=== PATIENT | female | born 1995 | race Caucasian/White ===

== ENCOUNTER → 2023-01-12 | Outpatient (CLI) | payer OTHER ==
--- NOTE | 2023-01-13 06:58 | MR ---
EXAMINATION TYPE: MR pelvis wo/w con DATE OF EXAM: 01/12/2023 COMPARISON: None HISTORY: Abnormal US. Hydrosalpinx. CONTRAST: Standard multiplanar, multisequence MRI departmental protocol images were obtained without contrast a nd with 10 mL intravenous Gadavist gadolinium contrast. The uterus is anteverted. Uterus has normal size and contour. Bladder distends smoothly. There is mod erate free fluid in the cul-de-sac. Left ovary has normal size with multiple small follicular cysts. The right ovary is enlarged with a dominant cyst that measures 4 cm. There is elongated fluid structu re in the right adnexal region consistent with hydrosalpinx that measures up to 9 mm in diameter. No evidence of left-sided hydrosalpinx. IMPRESSION: Right-sided hydrosalpinx with large right ovarian cyst. Mild free fluid in the pelvis. Normal uterus. Normal left ovary.
== END | disposition home or self-care (01) ==
LOC: RADMRIMAIN 21:15
PROVIDERS: ATTEND Obstetrics & Gynecology Reproductive Endocrinology
DX: N70.11 Chronic salpingitis (principal); N83.201 Unspecified ovarian cyst, right side
CPT/HCPCS: 72197; A9585

== ENCOUNTER → 2023-05-05 | Outpatient (CLI) | payer OTHER ==
[2023-05-05 13:25] LABS: Basophils # (A) 0.08 X 10*3/uL (0.00-0.10); Eosinophils % (A) 1.3 %; HCT 43.1 % (37.2-46.3); HGB 14.1 d/dL (12.0-15.0); Lymphocytes # (A) 2.51 X 10*3/uL (0.90-5.00); Lymphocytes % (A) 32.4 %; MCH 29.9 pg (27.0-32.0); MCHC 32.7 d/dL (32.0-37.0); MCV 91.3 FL (80.0-97.0); Monocytes # (A) 0.54 X 10*3/uL (0.20-1.00); NRBC Per 100 WBC 0 X 10*3/uL (0.00-0.01); Neutrophils # (A) 4.48 X 10*3/uL (1.80-7.70); Neutrophils % (A) 57.9 %; Platelet Count 272 X 10*3/uL (140-440); RBC 4.72 X 10*6/uL (4.10-5.20); RDW 13.4 % (11.5-14.5); WBC 7.74 X 10*3/uL (4.50-10.00)
== END | disposition home or self-care (01) ==
LOC: LABPAT 08:20
PROVIDERS: ATTEND Obstetrics & Gynecology
DX: Z01.812 Encounter for preprocedural laboratory examination (principal); N70.11 Chronic salpingitis
CPT/HCPCS: 85025